=== PATIENT | female | born 1970 | race Caucasian/White ===

== ENCOUNTER → 2018-09-21 08:21 | Outpatient (CLI) | payer OTHER | END | disposition home or self-care (01) | LOC: D.MRI 08:00 | DX: M25.561 Pain in right knee (principal) ==

== ENCOUNTER 2018-12-09 07:15 | Day surgery (SDC) | payer OTHER ==
--- NOTE | 2018-12-04 11:54 | NUR ---
UP AD SAMEER. INFANT AND VISITORS IN ROOM. DENIES NEEDING ANYTHING AT THIS TIME. TO CALL IF ANYTHING IS NEEDED. VERBALIZED UNDERSTANDING.
[2018-12-07 10:33] LABS: HEMATOCRIT 39.7 % (36.0-48.0); HEMOGLOBIN 13.5 g/dL (12-16); MCH 30.3 pg (26.0-34.0); MCV 89.2 fL (80.0-100.0); MEAN PLATELET VOLUME 9.4 fL (7.4-10.4); RBC 4.45 10x6/uL (4.00-5.40); WBC 7.5 10x3/uL (4.8-10.8)
[~2018-12-09] VITALS: Ht 167.6 cm; Wt 93.0 kg
[~2018-12-09 07:15] MED LIST: CONTRAVE PO; NP THYROID90 MG PO; [UNRECOGNIZED DRUG - OTHER] PO
[2018-12-09 08:33] VITALS: BP 102/59; Ht 167.6 cm; Wt 93.0 kg
[2018-12-09] MEDS ORDERED: VISTARIL50 MG PO (12:46)
[2018-12-09] MEDS ORDERED: PERCOCET 7.5/321 TAB PO (12:46)
--- NOTE | 2018-12-09 13:23 | NUR ---
1300 ANESTHESIA CONSULTED FOR EXTREME PAIN. BLOCK PERFORMED. SEE ANESTHESIA RECORD. WILL CONTINUE TO MONITOR.
--- NOTE | 2018-12-10 08:41 | OP ---
PATIENT NAME: TOSHIA CARY MEDICAL RECORD: [id number] :68 LOCATION:[facility] ADMISSION DATE: SURGEON: HERON CURTIS DO DATE OF OPERATION: 12/09/2018 PROCEDURE PERFORMED: Right knee arthroscopy with lateral release, partial lateral meniscectomy, and medial femoral condyle abrasion chondroplasty. 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 INDICATIONS: Ms. Cary is a 48-year-old female who presented to my office with right knee pain, mostly going up and down hills and stairs. She said that she was tired of dealing with the pain as popping quite a bit and hurting. The patient had tried an injection and also forms of physical therapy, which did not work. She had an MRI. The TT-TG was 1.7, so not greater than 2.0 cm or 20 mm, not indicated for a tibial tubercle transfer. She did, however, have a quite severe patellar tilt, lateral patellar tilt, and pain and immobility of the patella from lateral to medial. I informed the patient that she did have some underlying arthritis and this did play a role, but we tried to do the least invasive thing first which would be a lateral release, to try to get the pressure off the lateral patellar facet, so would not be riding so much on the lateral femoral condyle. She was okay with that and consented to the procedure. She was aware of the risks and benefits including need for further surgery, infection, bleeding, damage to nerve and vessels, swelling, and signed the consent. SURGEON: Heron Curtis DO DESCRIPTION OF THE PROCEDURE: The patient was taken to the operative suite, laid in supine position. Right lower extremity was prepped and draped in sterile fashion. A timeout was performed. Everyone was agreeance to correct side, site, patient and procedure. The knee was then flexed. The lateral portal was established with an 11-blade scalpel. The trocar was then entered into the knee and suprapatellar pouch. 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 The lateral patellar tilt was noted riding right on the lateral femoral condyle. The lateral gutter was then inspected. No loose body is seen there. The medial gutter was also inspected and no loose body is seen there. The knee was then brought from extension to flexion and entering the medial compartment, the chondromalacia was noted of the lateral femoral condyle, grade III, had some loose spots. Shaver was brought in after the medial portal was established with an 18-gauge spinal needle and an 11-blade scalpel. Shaver was brought in to do the abrasion chondroplasty of those. We removed easily the loose cartilage that was there. The probe was then brought in and the medial meniscus was probed. No tears were seen. The probe was then put on the ACL and it was probed and seemed to be taut and then tacked back in the lateral compartment. Knee was [id number] and the lateral meniscus was inspected. There was a tear seen about the mid to anterior third of the lateral meniscus. This was achieved out with a shaver and biter back to a stable spot. The scope was then changed from the lateral to medial portal and the lateral release was performed. The scope from the medial portal and the burner brought in from the lateral portal up on the lateral side. There is no lateral retinaculum and this was released from proximal and distal. Any bleeding was coagulated at that time with the same OPERATIVE REPORT [id number] TOSHIA CARY. The scope was then changed back to the lateral portal, looking up the patella. It did seem to ride a little more centered and not as tilted on the lateral femoral condyle at that point, bringing the knee from extension to flexion. There was chondromalacia noted in the trochlea as well, grade III, the worst was a grade IV on the lateral patellar facet. The suction was then turned on. The water was turned off and the scope was removed from the knee. The portal sites were then closed with 4-0 Monocryl in inverted interrupted fashion. Steri-Strips, Adaptic, 4 x 4's, ABD, Webril, and Santino wrap were then placed on the tibial side, this was placed up to the knee. The patient was awakened and taken to recovery in stable condition. ESTIMATED BLOOD LOSS: Minimal. COMPLICATIONS: None. TRANSINT:[id number] Voice Confirmation ID: [id number] DOCUMENT ID: [id number] HERON CURTIS DO at 0841 CC: [id number] DICTATION DATE: 12/09/18 1253 SAFETY INVESTIGATOR/CAUSE ANALYST: 12/09/18 2202 [facility] 12/09/18 [id number] [place] [address]
== END 2018-12-09 15:20 | disposition home or self-care (01) ==
LOC: D.OPS 07:15 → D.PAN 11:15 → D.OPS 15:20
PROVIDERS: Anesthesiology
DX: S83.011A Lateral subluxation of right patella, initial encounter (principal); M22.41 Chondromalacia patellae, right knee; M13.861 Other specified arthritis, right knee; Z01.812 Encounter for preprocedural laboratory examination